=== PATIENT | female | born 1990 | race Hispanic/Latino ===

== ENCOUNTER 2019-04-20 15:44 | Emergency (ER) | payer SELFPAY ==
[2019-04-20] MEDS ORDERED: HALOPERIDOL LACTATE 5 MG/1 ML INJ IM PRN (17:10)
[2019-04-20] MEDS ORDERED: LORazepam 2 MG/ML VIAL IM PRN (17:10)
--- NOTE | 2019-04-20 17:15 | Emergency Department Report ---
ED General Adult HPI - General Chief complaint: Psych Stated complaint: SUICIDE ATTEMPT Time Seen by Provider: 04/20/19 17:01 Source: patient, EMS (EMS records not available at time of chart dictation.), RN notes reviewed Mode of arrival: Stretcher Limitations: Other (patient has an episode where she does not have recollection of what happened) - History of Present Illness Initial comments: The patient is a 29-year-old female. The patient is not known to this provider previously. Patient is reportedly brought to the hospital by emergency medical services for reported suicide attempt. Patient reports that at approximately 1:30 PM today, she took a few shots of tequila, snorted cocaine, consumes marijuana, and took a few tablets of Motrin, 600 mg, 4-5 tablets, 3 tablets of hydrocodone, unknown dose, and a few tablets of a muscle relaxer, "I think it started with an M." Apparently, she was doing this because she was feeling suicidal. A serious relationship recently terminated, and this has been very distressing to her. The patient reports that she went out and drove, and that she had blanked out, and apparently, found herself in an ambulance. She does not know how that happened. She has chronic left lower quadrant pain which is not a new, worsening or different. Otherwise, she denies headache, neck pain, chest pain, upper abdominal pain, denies right lower quadrant abdominal pain, denies urinary symptoms. She is not suicidal at this time. She denies urinary symptoms. She does not have access to guns or firearms. She is not having hallucinations. -: Sudden Severity scale (0 -10): 0 Consistency: now resolved Improves with: none Worsens with: other (social factors) - Related Data Previous Rx's Medication Instructions Recorded Last Taken Type FLUoxetine [PROzac] 10 mg PO QDAY #30 tablet 04/22/19 Unknown Rx Allergies Allergy/AdvReac Type Severity Reaction Status Date / Time No Known Allergies Allergy Verified 04/20/19 16:58 ED Review of Systems ROS: Stated complaint: SUICIDE ATTEMPT Other details as noted in HPI Constitutional: denies: fever Eyes: denies: eye discharge ENT: denies: dental pain Respiratory: denies: cough Cardiovascular: denies: chest pain, palpitations Gastrointestinal: denies: nausea, vomiting, diarrhea Genitourinary: denies: dysuria Musculoskeletal: denies: myalgia Skin: denies: lesions Neurological: denies: weakness, numbness, paresthesias Psychiatric: anxiety, depression Hematological/Lymphatic: denies: easy bleeding ED Past Medical Hx - Past Medical History Previous Medical History?: Yes Additional medical history: Pelvic Inflammatory Disease - Surgical History Past Surgical History?: No - Social History Smoking Status: Current Every Day Smoker Substance Use Type: Cocaine, Marijuana - Medications Home Medications: Home Medications Medication Instructions Recorded Confirmed Last Taken Type FLUoxetine [PROzac] 10 mg PO QDAY #30 tablet 04/22/19 Unknown Rx ED Physical Exam - General Limitations: No Limitations, Other (chaperoned by RN Gaby Shanks) General appearance: alert, in no apparent distress - Head Head exam: Present: atraumatic, normocephalic - Eye Eye exam: Present: normal appearance, EOMI, other (visual acuity intact to finger counting, color perception, reading at a close distance). Absent: nystagmus - ENT ENT exam: Present: normal exam, normal orophraynx, mucous membranes moist, normal external ear exam - Neck Neck exam: Present: normal inspection, full ROM. Absent: tenderness, meningismus - Respiratory Respiratory exam: Present: normal lung sounds bilaterally. Absent: respiratory distress - Cardiovascular Cardiovascular Exam: Present: regular rate, normal rhythm, normal heart sounds. Absent: bradycardia, tachycardia, irregular rhythm, systolic murmur, diastolic murmur, rubs, gallop - GI/Abdominal GI/Abdominal exam: Present: soft. Absent: distended, tenderness, guarding, rebound, rigid, pulsatile mass - Extremities Exam Extremities exam: Present: normal inspection, full ROM, other (2+ pulses noted in the bilateral upper and lower extremities. The pelvis is stable. There is no long bony tenderness. The muscular compartments are soft. There is no redness, pus, streaking or erythema.). Absent: pedal edema, joint swelling, calf tenderness - Back Exam Back exam: Present: normal inspection, full ROM. Absent: tenderness, CVA tenderness (R), CVA tenderness (L), paraspinal tenderness, vertebral tenderness - Neurological Exam Neurological exam: Present: alert, oriented X3, other (there is no facial droop. The tongue is midline. Extraocular movements are intact bilaterally. Speaking in full sentences. Hearing is grossly intact. 5 out of 5 strength bilateral upper and lower extremities. Sensation is intact to light touch bilateral upper and lower extremities.) - Psychiatric Psychiatric exam: Present: anxious. Absent: homicidal ideation, suicidal ideation - Skin Skin exam: Present: warm, dry, intact, normal color. Absent: rash ED Course Vital Signs 04/20/19 04/20/19 04/20/19 16:50 17:00 17:15 Temperature 98.2 F Pulse Rate 75 80 71 Respiratory 16 19 16 Rate Blood Pressure 113/79 107/67 Blood Pressure 113/79 [Right] O2 Sat by Pulse 100 98 Oximetry 04/20/19 04/20/19 04/20/19 17:30 17:45 18:00 Temperature Pulse Rate 80 79 97 H Respiratory 12 11 L 21 Rate Blood Pressure 117/72 117/72 124/64 Blood Pressure [Right] O2 Sat by Pulse 98 100 100 Oximetry 04/20/19 04/20/19 04/20/19 19:00 19:30 20:14 Temperature 98.1 F Pulse Rate 84 82 86 Respiratory 13 18 18 Rate Blood Pressure 119/76 109/88 Blood Pressure 109/88 [Right] O2 Sat by Pulse 100 100 99 Oximetry 04/20/19 04/20/19 04/20/19 20:30 21:00 21:30 Temperature Pulse Rate 82 84 83 Respiratory 9 L 15 19 Rate Blood Pressure 118/82 101/65 101/59 Blood Pressure [Right] O2 Sat by Pulse 100 99 98 Oximetry 04/21/19 04/21/19 04/21/19 02:15 08:53 08:57 Temperature 98.2 F 98.3 F 97.6 F Pulse Rate 76 82 108 H Respiratory 16 Rate Blood Pressure Blood Pressure 105/60 127/73 153/99 [Right] O2 Sat by Pulse 98 100 98 Oximetry 04/21/19 04/22/19 04/22/19 20:14 02:00 08:00 Temperature 98.4 F 98.6 F 98.8 F Pulse Rate 95 H 84 101 H Respiratory 18 16 Rate Blood Pressure Blood Pressure 124/58 102/57 118/76 [Right] O2 Sat by Pulse 99 97 98 Oximetry - Reevaluation(s) Reevaluation #1: 04/20/19 17:42 Differential diagnosis, including but not limited to: Suicidal attempt, medical clearance, polysubstance overdose, intracranial lesion, depression, intoxication Assessment and plan: 29-year-old female who after ingesting multiple drugs, including alcohol, cocaine and marijuana, took a number of pills, and around 1:30 PM, and an apparent suicide attempt. The patient reports that she was driving, and then feels like she blanked out. There is no trauma that she is aware. There is no report of motor vehicle accident. She is currently awake and alert, calm and cooperative. She is placed on ER hold. EKG reviewed and appreciated. I have requested that nursing team contact her mother, who apparently had the prescriptions, to obtain a specific prescriptions and doses. Highly doubt intracranial lesion, however, we will obtain CT scan of the brain. Psychiatry consultation is requested. We will contact the [facility] once her initial laboratory studies have resulted. Reevaluation #2: 04/20/19 17:44 Presents more than one hour after ingestion. The patient is therefore not a charcoal candidate Reevaluation #3: 04/20/19 19:47 Discussed with Bhavik at the [place] [facility]. They recommended 6 hours of observation. Psychiatry behavioral health assistant has recommended overnight observation. Screening laboratory studies unremarkable. CT scan the brain is unremarkable. No further events have been noted. Patient resting comfortably, and in no acute distress. At this point in time, the patient does not appear to have an immediate medical contraindication to psychiatric evaluation, consultation and placement. ED Medical Decision Making - Lab Data Result diagrams: 04/20/19 18:42 04/20/19 18:42 Vital Signs 04/20/19 16:50 Temperature 98.2 F Pulse Rate 75 Respiratory 16 Rate Blood Pressure 113/79 [Right] O2 Sat by Pulse 100 Oximetry - EKG Data -: EKG Interpreted by [facility] EKG shows normal: sinus rhythm Rate: normal - EKG Data When compared to previous EKG there are: previous EKG unavailable 04/20/19 17:44 There is no prior EKG available for comparison. The EKG shows a sinus rhythm, 70 bpm, normal axis, QTC within normal limits, incomplete right bundle-branch block, intervals within normal limits, this EKG is not consistent with STEMI. - Radiology Data Radiology results: pending, report reviewed, image reviewed Critical care attestation.: If time is entered above; I have spent that time in minutes in the direct care of this critically ill patient, excluding procedure time. ED Disposition Clinical Impression: Overdose, Dysthymia Disposition: DC-01 TO HOME OR SELFCARE Is pt being admited?: No Does the pt Need Aspirin: No Condition: Stable Instructions: Depression (ED), Suicide Prevention for Adults (ED) Additional Instructions: Please follow-up with one of the psychiatric referrals that she were given by the psychiatric team. Take the Prozac as prescribed. Return to the emergency department with any worsening of your symptoms, thoughts of harming herself or others, or any acute distress. Prescriptions: FLUoxetine [PROzac] 10 mg PO QDAY #30 tablet Referrals: PRIMARY CARE, [Primary Care Provider] - 3-5 Days Forms: Work/School Release Form(ED)
[2019-04-20 18:23] LABS: Bacteria,Urine 1+ /HPF (Negative); Bilirubin,Urine NEG (Negative); Blood,Urine NEG (Negative); Color,Urine Yellow (Yellow); Mucus,Urine FEW /HPF; Protein,Urine <15 mg/dL mg/dL (Negative); Urobilinogen,Urine < 2.0 mg/dL (<2.0)
[2019-04-20 18:48] LABS: Amphetamine Screen,Urine PRESUMPTIVE NEGATIVE; Benzodiazepines Screen,Urine PRESUMPTIVE NEGATIVE; Cannabinoid Screen,Urine PRESUMPTIVE POSITIVE; Methadone Screen,Urine PRESUMPTIVE NEGATIVE
[2019-04-20 18:49] LABS: Cocaine Screen,Urine PRESUMPTIVE NEGATIVE; Opiate Screen,Urine PRESUMPTIVE NEGATIVE
--- NOTE | 2019-04-20 18:57 | Cat Scan Report ---
CT head/brain wo con INDICATION: loss on consciousness, hx of blurry vision. TECHNIQUE: All CT scans at this location are performed using the following dose modulation technique: Automated exposure control. CONTRAST: None. COMPARISON: None available. FINDINGS: The ventricular system is appropriate in size and configuration without midline shift. Nega tive for mass, stroke or hemorrhage. Imaged portions of the paranasal sinuses are clear. IMPRESSION: Negative CT brain without contrast. Signer Name: Tyrel Alejandro MD Signed: 04/20/2019 6:53 PM Workstation Name: [id number]
[2019-04-20 19:08] LABS: Hematocrit 46.1 % (30.3-42.9); Mean Corpuscular HGB Conc 33 % (30-34); Mean Corpuscular Volume 85 fl (79-97); Platelet Count 312 K/mm3 (140-440); Red Blood Count 5.43 M/mm3 (3.65-5.03); Red Cell Distribution Width 12.9 % (13.2-15.2)
[2019-04-20 19:26] LABS: Alanine Aminotransferase 14 units/L (7-56); Albumin 4.6 g/dL (3.9-5); BUN/Creatinine Ratio 17; Blood Urea Nitrogen 10 mg/dL (7-17); Calcium 9.8 mg/dL (8.4-10.2)
[2019-04-20 19:27] LABS: Hemolysis Index 18
[2019-04-20] MEDS ORDERED: diphenhydrAMINE 25 MG CAP PO ONE (22:08)
--- NOTE | 2019-04-21 16:37 | Consultation ---
History of Present Illness - Reason for Consult Consult date: 04/21/19 Reason for consult: psychiatric assessment - Chief Complaint Chief complaint: SI - History of Present Psychiatric Illness Ms jensen is 29year old female present to the ED by ems because she took a hand full of Motrin. The patient is aaox4,she states, i broke up with my boyfriend since october, but it really got to me new on the that he has moved on and i just didn't want to wake up". she states that she eating and sleeping well. she reported that she had time to think about it and realized that it was a stupid thing to do. The patient denies SI/HI and AVH. She does report that since the break up she has been depressed, she report crying alot,smoking weed to,feeling worthless and drinking. client states, she is will to start on a low dose of medication for her depression and love to be d/c tomorrow because she has new job starting Tuesday. ROS Constitutional:Negative for weight loss ENT: Negative for stridor Respiratory: Negative for cough All systems reviewed and are negative Past Medical Hx: Denies Psychiatric History: Previous psychiatric diagnoses: denied Previous admits: Denies Suicidal attempts in past: denies Past medications tried: none Outpatient treatment: denies Substance abuse: marijuana Social History Lives with mother Single will . start working tuesday Legal hx: no Highest grade: college Family Psychiatric History None reported Mental Status Exam Appearance: calm Behavior: cooperative. Mood: "good" Affect: bright Thought Process: Speech: low tone Thought Content Harmfulness: Denies Hallucinations: denies Delusions: denies Consciousness: Alert Cognition/Memory:intact Insight/Judgment: intact Assessment suicide ideation and depression Recommendations: Continue 1013 start Prozac 10mg daily MEDICAL: Per primary team; STAT labs requested. 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 Transfer to appropriate facility once medically cleared. LEGAL STATUS: Involuntary FOLLOW-UP: Will follow until transferred Medications and Allergies Allergies Allergy/AdvReac Type Severity Reaction Status Date / Time No Known Allergies Allergy Verified 04/20/19 16:58 Active Meds: Active Medications Haloperidol Lactate (Haldol) 5 mg IM Q6HR PRN PRN Reason: Agitation Lorazepam (Ativan) 2 mg IM Q4HR PRN PRN Reason: Agitation Mental Status Exam - Vital signs Last Vital Signs Temp 97.6 F 04/21/19 08:57 Pulse 108 H 04/21/19 08:57 Resp 16 04/21/19 02:15 BP 153/99 04/21/19 08:57 Pulse Ox 98 04/21/19 08:57 Results Result Diagrams: 04/20/19 18:42 04/20/19 18:42 Abnormal lab results 04/20/19 04/20/19 04/20/19 Range/Units 18:42 18:42 18:42 RBC 5.43 H (3.65-5.03) M/mm3 Hgb 15.0 H (10.1-14.3) gm/dl Hct 46.1 H (30.3-42.9) % RDW 12.9 L (13.2-15.2) % Carbon Dioxide 21 L (22-30) mmol/L Creatinine 0.6 L (0.7-1.2) mg/dL Total Protein 8.3 H (6.3-8.2) g/dL Salicylates < 0.3 L (2.8-20.0) mg/dL Acetaminophen (10.0-30.0) ug/mL 04/20/19 Range/Units 18:42 RBC (3.65-5.03) M/mm3 Hgb (10.1-14.3) gm/dl Hct (30.3-42.9) % RDW (13.2-15.2) % Carbon Dioxide (22-30) mmol/L Creatinine (0.7-1.2) mg/dL Total Protein (6.3-8.2) g/dL Salicylates (2.8-20.0) mg/dL Acetaminophen < 5.0 L (10.0-30.0) ug/mL All other labs normal.
[2019-04-22 08:02] VITALS: BP 118/76
[2019-04-22] MEDS ORDERED: FLUoxetine 10 MG TAB PO SCH (10:00)
--- NOTE | 2019-04-22 14:01 | Progress Note ---
Subjective - Reason for Consult Consult date: 04/22/19 Reason for consult: psychiatric assessment - Chief Complaint Chief complaint: Medical records reviewed and patient's progress was discussed with unit staff. Nursing staff reports that patient has no acute distress , no behaviors or s/s of self harm noted, able to make needs known. In my interview with the patient this morning, the patient reports mood as wonderful. Appetite as great. she reports sleeping well. she denies SI/HI,she states, i am clear headed, had time to think and would never do that again. The patient was able to verbally tell me what she would do if she felt suicidal , sh e states, I would call 911 ,call a family or friend or go the nearest ED. She denies AVH. The patient contract for safety. Review of Symptoms: Constitutional: Negative for weight loss ENT: Negative for stridor Respiratory: Negative for cough or hemoptysis All other systems reviewed and are negative MSE Appearance: Wearing appropriate clothing. Good hygiene Behavior: Pleasant and cooperative. Mood: "Good" Affect: Congruent with stated mood Thought Process: Goal directed Speech: Normal rate. Thought Content Harmfulness Denies SI/HI Hallucinations: patient denies Delusions: none elicited Consciousness: alert. Cognition/Memory: normal. Insight/Judgment: good Treatment Plan RECOMMENDATIONS Based on my evaluation, the patient is able to demonstrate understanding, appreciation and reasoning regarding their medical condition and need for treatment. At this time I do believe that the patient has decision-making capacity. MEDICATIONS: patient will be d/c home with prozac 10mg daily Risks, benefits and alternatives of medications discussed with the patient, questions answered and consent obtained from patient. PSYCHOTHERAPY: Supportive psychotherapy provided MEDICAL: Per primary team PHOTOGRAPHIC EDITOR: none DISPOSITION: Per primary team; no indication for acute inpatient psychiatric hospitalization at this time LEGAL STATUS:voluntary FOLLOW-UP: sign-off Mental Status Exam - Vital signs Last Vital Signs Temp 98.8 F 04/22/19 08:00 Pulse 101 H 04/22/19 08:00 Resp 16 04/22/19 02:00 BP 118/76 04/22/19 08:00 Pulse Ox 98 04/22/19 08:00
== END 2019-04-22 15:03 | disposition home or self-care (01) ==
LOC: ED 15:44
DX: T39.312A Poisoning by propionic acid derivatives, intentional self-harm, initial encounter (principal); F32.9 Major depressive disorder, single episode, unspecified; F34.1 Dysthymic disorder; F17.200 Nicotine dependence, unspecified, uncomplicated; F10.10 Alcohol abuse, uncomplicated; F12.10 Cannabis abuse, uncomplicated; Z79.899 Other long term (current) drug therapy; Y92.89 Other specified places as the place of occurrence of the external cause
CPT/HCPCS: 36415; 70450; 80053; 80307; 81001; 82550; 83735; 84702; 85027; 93005; 93010; 96372; 99285; J2060; 80320; G0480